=== PATIENT | male | born 1995 | race Caucasian/White ===

== ENCOUNTER 2023-03-03 15:13 | Emergency (ER) | payer OTHER ==
[~2023-03-03] VITALS: Ht 165.1 cm; Wt 84.1 kg
[2023-03-03] MEDS ORDERED: EMTR1TAB53 PO (15:33)
[2023-03-03] MEDS ORDERED: IBUPROFEN 600 MG TABLET PO ONE (16:15)
[2023-03-03] MEDS ORDERED: LEVO-72 PO (17:30)
[2023-03-03] MEDS ORDERED: CefTRIAXone SODIUM 1 GM/VIAL IM ONE (17:30)
[2023-03-03] MEDS ORDERED: LIDOCAINE/PF 1% 2 ML VIAL IM ONE (17:30)
[2023-03-03] MEDS ORDERED: IBUP-1492 PO (17:30)
[2023-03-03 17:34] LABS: APPEARANCE,URINE CLEAR (CLEAR); BILIRUBIN,URINE NEGATIVE (NEGATIVE); GLUCOSE, URINE (UA) NEGATIVE (NEGATIVE); KETONES,URINE NEGATIVE (NEGATIVE); LEUKOCYTE ESTERASE ,URINE NEGATIVE (NEGATIVE); NITRATE,URINE NEGATIVE (NEGATIVE); OCCULT BLOOD,URINE NEGATIVE (NEGATIVE); PROTEIN,URINE 30-70 mg/dL (NEGATIVE); SPECIFIC GRAVITIY, URINE 1.027 (1.003-1.030)
[2023-03-03 17:48] LABS: BACTERIA,URINE None Seen /HPF (None Seen); RBC,URINE None Seen /HPF (0-2); WBC,URINE None Seen /HPF (0-5)
[2023-03-03 18:00] VITALS: BP 119/68
== END 2023-03-03 18:10 | disposition home or self-care (01) ==
LOC: EMS 15:13
DX: N50.82 Scrotal pain (principal); N43.3 Hydrocele, unspecified
CPT/HCPCS: 99285; 81001; 76870; 87491; 87591; 96372; J0696; J3490